=== PATIENT | female | born 1955 | race Hispanic/Latino ===

== ENCOUNTER 2022-01-05 11:49 | Emergency (ER) | payer MEDICARE ==
[2022-01-05 11:59] VITALS: BP 132/87
--- NOTE | 2022-01-05 12:47 | Emergency Department Report ---
ED Extremity Problem HPI - General Chief complaint: Extremity Problem,Nontraumatic Stated complaint: LFT SWOLLEN FOOT Time Seen by Provider: 01/05/22 12:12 Source: patient, old records reviewed Mode of arrival: Ambulatory Limitations: No Limitations - History of Present Illness Initial comments: 66-year-old female with a past medical history of bipolar disorder, depression, anxiety, thyroid disorder, hypertension, hyperlipidemia, COPD and chronic back pain presents to the ER today with complaints of left foot pain swelling and redness. Patient states that symptoms started about 3 to 4 days ago. She was seen in the ER late Thursday night for her symptoms. She had lab work done which was unremarkable and a venous Doppler which was negative for DVT. Uric acid was also checked to rule out gout and that was normal. Patient was discharged home with Keflex and states she was diagnosed with cellulitis. Patient admits that she has not been able to get the antibiotics filled. She states that she is currently at [facility] across the street and they have not gotten her prescriptions filled as yet. She states that she has been ambulating and walking on the leg ever since she was seen 2 days ago because she does not have transportation. She states that she come back to the ER because she noticed that the redness to the top of her foot get deeper and streaky and is also burning and was concerned as symptoms was getting worse. She reports no fever, chills, chest pain, shortness of breath or any additional symptoms. Patient states that she had similar symptoms last year, and she was prescribed a prednisone taper but she was not given a clear diagnosis. She also had a cardiac evaluation last year when she had an echocardiogram and she states that she was told it was normal. She denies any history of gout. Complaint: joint swelling, joint paint -: days(s) (3-4) - Related Data Previous Rx's Medication Instructions Recorded Last Taken Type cephALEXin [Keflex] 500 mg PO Q6HR #30 cap 01/05/22 Unknown Rx Allergies Allergy/AdvReac Type Severity Reaction Status Date / Time No Known Allergies Allergy Verified 01/03/22 17:33 ED Review of Systems ROS: Stated complaint: LFT SWOLLEN FOOT Other details as noted in HPI Comment: Unobtainable due to pts medical conditions Constitutional: denies: chills, fever ENT: denies: ear pain, throat pain, dental pain, hearing loss, congestion Respiratory: denies: cough, shortness of breath, wheezing Cardiovascular: denies: chest pain, palpitations Genitourinary: denies: urgency, dysuria, frequency, hematuria, discharge, abnormal menses, dyspareunia Musculoskeletal: joint swelling, arthralgia. denies: back pain Skin: denies: rash, lesions, change in color, change in hair/nails, pruritus Neurological: denies: headache, weakness, numbness, paresthesias, confusion, abnormal gait, vertigo Psychiatric: denies: anxiety, depression, auditory hallucinations, visual hallucinations, homicidal thoughts, suicidal thoughts Hematological/Lymphatic: denies: easy bleeding, easy bruising, swollen glands ED Past Medical Hx - Past Medical History Hx Congestive Heart Failure: Yes - Medications Home Medications: Home Medications Medication Instructions Recorded Confirmed Last Taken Type cephALEXin [Keflex] 500 mg PO Q6HR #30 cap 01/05/22 Unknown Rx ED Physical Exam - General Limitations: No Limitations General appearance: alert, in no apparent distress, anxious - Eye Eye exam: Present: normal appearance, PERRL, EOMI Pupils: Present: normal accommodation - Neck Neck exam: Present: normal inspection, full ROM. Absent: meningismus - Respiratory Respiratory exam: Present: normal lung sounds bilaterally. Absent: respiratory distress - Cardiovascular Cardiovascular Exam: Present: normal rhythm, tachycardia, normal heart sounds - Expanded Lower Extremity Exam Left Lower Leg exam: Present: full ROM, swelling (Mild soft swelling noted to left lower leg without any redness. Mild tenderness mainly to the lateral aspect of the left leg but no calf tenderness.). Absent: abrasion, laceration, ecchymosis, crepidus, dislocation, erythema, palpable cord, Torsten's sign Ankle exam: Present: full ROM, swelling (Mild to moderate swelling noted about the ankle 1+ pitting). Absent: tenderness, abrasion, laceration, ecchymosis, deformity, crepidus, dislocation, erythema, anterior draw sign Foot/Toe exam: Present: tenderness (Tenderness noted over the dorsal aspect of the left foot), swelling (Moderate swelling noted to the dorsal aspect of the left foot.), erythema (Moderate erythema noted to the dorsal aspect of the left foot with mild warmth but there is no streaking). Absent: abrasion, laceration, ecchymosis, deformity, crepidus, dislocation, amputation, puncture wound, foreign body, calcaneal tenderness, tenderness at base of 5th metatarsal, nail avulsion, subungual hematoma Neuro vascular tendon exam: Present: no vascular compromise. Absent: pulse deficit, abnormal cap refill, motor deficit, sensory deficit, tendon deficit Gait: Positive: observed and limited by pain - Neurological Exam Neurological exam: Present: alert, oriented X3, CN II-XII intact, other (Mild limping gait) - Psychiatric Psychiatric exam: Present: normal affect, normal mood ED Course Vital Signs 01/05/22 01/05/22 11:56 12:52 Temperature 99.3 F Pulse Rate 130 H 124 H Respiratory 20 Rate Blood Pressure 132/87 O2 Sat by Pulse 96 Oximetry ED Medical Decision Making - Lab Data Result diagrams: 01/05/22 13:39 - Radiology Data Radiology results: report reviewed Patient: MARY HOGAN MR#: [id number] : 1955 Acct:[id number] Age/Sex: 66 / F ADM Date: 01/05/22 Loc: ED Attending Dr: Ordering Physician: ZULEMA COREY Date of Service: 01/05/22 Procedure(s): XR foot 3+V LT Accession Number(s): [id number] cc: ZULEMA COREY Fluoro Time In Minutes: LEFT FOOT 3 VIEW(S) INDICATION / CLINICAL INFORMATION: left foot swelling and redness COMPARISON: None available. FINDINGS: BONES / JOINT(S): No acute fracture or subluxation. No significant arthritis. SOFT TISSUES: Soft tissue swelling at the dorsum of the foot is nonspecific, likely cellulitis. No gas identified. ADDITIONAL FINDINGS: None. Signer Name: Devonte Bowens MD Signed: 01/05/2022 1:46 PM Workstation Name: [id number] Transcribed By: DB Dictated By: DEVONTE BOWENS MD Electronically Authenticated By: DEVONTE BOWENS MD Signed Date/Time: 01/05/22 1346 DD/ 1344 TD/TT: - Medical Decision Making 1504: X-ray of the foot showed cellulitis. Repeat CBC shows a normal white count. Patient vital signs reviewed she is noticed to be tachycardic but patient is anxious and very talkative. Discussed case with Dr. Gutierrez, he saw and evaluated patient. Agree that the heart rate is more likely related to anxiety and less likely related to sepsis at this time. Patient also reports that she has hx of elevated HR. No further lab work or imaging or admission indicated at this time. Patient given a dose of Keflex here during stay and Keflex prescription was given again. Patient encouraged to get the prescription filled at [facility] across the street and start taking antibiotics today as prescribed. Recommend that she elevate her leg and follow-up with her primary care doctor this week. Patient expressed understanding and agree with plan. Patient was stable at time of discharge. Critical care attestation.: If time is entered above; I have spent that time in minutes in the direct care of this critically ill patient, excluding procedure time. ED Disposition Clinical Impression: Cellulitis of left foot Disposition: HOME / SELF CARE / HOMELESS Is pt being admited?: No Does the pt Need Aspirin: No Condition: Stable Instructions: Cellulitis, Adult, [id number] Additional Instructions: It is very important that you get the Keflex filled and start taking it as prescribed and until completion. Take your usual chronic pain medication that you have at home for pain. Elevate the leg as often as possible to help with the swelling. Follow-up with your primary care doctor in the next 1 to 2 days for recheck. Return to the ER if your symptoms changes or worsens in any way. Prescriptions: cephALEXin [Keflex] 500 mg PO Q6HR #30 cap Referrals: BRITTANY HOLLAND MD [Staff Physician] - 3-5 Days TEJAS VALDEZ MD [Staff Physician] - 3-5 Days Time of Disposition: 14:59
--- NOTE | 2022-01-05 13:50 | XRay Report ---
LEFT FOOT 3 VIEW(S) INDICATION / CLINICAL INFORMATION: left foot swelling and redness COMPARISON: None available. FINDINGS: BONES / JOINT(S): No acute fracture or subluxation. No significant arthritis. SOFT TISSUES: Soft tissue swelling at the dorsum of the foot is nonspecific, likely cellulitis. No ga s identified. ADDITIONAL FINDINGS: None. Signer Name: Devonte Bowens MD Signed: 01/05/2022 1:46 PM Workstation Name: [id number]
[2022-01-05] MEDS ORDERED: IBUPROFEN 600 MG TAB PO ONE (13:51)
[2022-01-05] MEDS ORDERED: ACETAMINOPHEN W/CODEINE 300-30 MG TAB PO ONE (13:51)
[2022-01-05 14:44] LABS: Basophils # (Auto) 0.1 K/mm3 (0.0-0.1); Basophils % (Auto) 0.6 % (0.0-1.8); Eosinophils # (Auto) 0.7 K/mm3 (0.0-0.4); Hemoglobin 9.9 gm/dl (10.1-14.3); Lymphocytes % (Auto) 21.7 % (13.4-35.0); Mean Corpuscular HGB Conc 33 % (30-34); Mean Corpuscular Volume 96 fl (79-97); Monocytes # (Auto) 0.9 K/mm3 (0.0-0.8); Monocytes % (Auto) 9.7 % (0.0-7.3); Platelet Count 242 K/mm3 (140-440); Red Blood Count 3.13 M/mm3 (3.65-5.03); Red Cell Distribution Width 13.4 % (13.2-15.2)
[2022-01-05] MEDS ORDERED: cephALEXin 500 MG CAP PO ONE (14:46)
== END 2022-01-05 15:06 | disposition home or self-care (01) ==
LOC: ED 11:49
DX: L03.116 Cellulitis of left lower limb (principal); Z86.79 Personal history of other diseases of the circulatory system
CPT/HCPCS: 36415; 85025; 99283